=== PATIENT | female | born 1970 | race Caucasian/White ===

== ENCOUNTER → 2024-08-04 08:03 | Outpatient (REF) | payer OTHER, SELFPAY ==
[2024-08-04 08:30] LABS: % Basophils 0.4 % (0-2); % Eosinophils 1.3 % (0-6); % Immature Granulocytes 0.2 % (0-0.5); % Lymphocytes 27.9 % (20.5-51.1); % Monocytes 8.2 % (1.7-9.3); Absolute Eosinophils 0.1 10^3/uL (0-0.7); Absolute Lymphocytes 1.3 10^3/uL (1.2-3.4); Absolute Monocytes 0.4 10^3/uL (0.1-0.6); Absolute Neutrophils 2.8 10^3/uL (1.4-6.5); Hematocrit 38.5 % (37.0-47.0); Hemoglobin 13.1 g/dL (12.0-16.0); Mean Corpuscular Hgb 32.4 pg (27.0-31.0); Mean Corpuscular Volume 95.3 fL (81.0-99.0); Mean Platelet Volume 9.4 fL (7.4-10.4); Nucleated Red Blood Cells % 0 %; Platelet Count 217 10^3/uL (130-400); Red Blood Cell Count 4.04 10^6/uL (4.20-5.40); Red Cell Dist. Width 13.8 % (11.5-14.5); White Blood Cell Count 4.5 10^3/uL (4.8-10.8)
[2024-08-04 08:58] LABS: ALT (SGPT) 21 U/L (0-35); AST (SGOT) 33 U/L (14-36); Albumin 4.8 g/dl (3.5-5.0); Alkaline Phosphatase 68 U/L (38-126); Blood Urea Nitrogen 15 mg/dl (7-17); Calcium 9.9 mg/dl (8.4-10.2); Carbon Dioxide 29 mmol/L (22-30); Chloride 104 mmol/L (98-107); Glucose 94 mg/dl (70-99); Potassium 4.7 mmol/L (3.5-5.1); Sodium 139 mmol/L (135-145); Total Bilirubin 0.5 mg/dl (0.2-1.3); Total Cholesterol 249 mg/dl (50-199); Total Protein 7.4 g/dl (6.3-8.2); Triglyceride 71 mg/dl (10-149); Very Low Density Lipoprotein 14 mg/dl (0-30); eGFR > 60.00
[2024-08-04 09:08] LABS: HDL Cholesterol 127 mg/dl; LDL Cholesterol, Calculated 108 mg/dl
== END ==
LOC: REG 08:03
PROVIDERS: ATTENDING PHYSICIAN Family Medicine; FAMILY PHYSICIAN Family Medicine
DX: R53.82 Chronic fatigue, unspecified (principal); R63.5 Abnormal weight gain; Z00.00 Encounter for general adult medical examination without abnormal findings; G47.9 Sleep disorder, unspecified; N28.9 Disorder of kidney and ureter, unspecified; F41.9 Anxiety disorder, unspecified; E78.00 Pure hypercholesterolemia, unspecified
CPT/HCPCS: 36415; 80053; 80061; 85025

== ENCOUNTER → 2024-08-25 10:00 | Outpatient (REF) | payer OTHER, SELFPAY | LOC: RCS 10:00 | PROVIDERS: ATTENDING PHYSICIAN Family Medicine; FAMILY PHYSICIAN Family Medicine | DX: R07.89 Other chest pain (principal) | CPT/HCPCS: 93005 ==

== ENCOUNTER → 2024-10-30 16:07 | Outpatient (REF) | payer OTHER, SELFPAY | LOC: WDC 16:07 | PROVIDERS: ATTENDING PHYSICIAN Family Medicine; FAMILY PHYSICIAN Family Medicine | DX: Z12.31 Encounter for screening mammogram for malignant neoplasm of breast (principal) | CPT/HCPCS: 77063; 77067 ==

== ENCOUNTER 2024-12-31 08:33 | Emergency (ER) | payer SELFPAY ==
[2024-12-31 08:36] VITALS: BP 133/69
[2024-12-31 09:09] LABS: Urine Albumin 1+ (Neg - Trace); Urine Bilirubin Negative (Negative); Urine Character Clear (Clear); Urine Color Yellow; Urine Glucose Negative (Negative); Urine Ketone Negative (Negative); Urine Leukocyte 1+ (Negative); Urine Nitrite Negative (Negative); Urine Occult Blood 1+ (Negative); Urine Specific Gravity 1.025 (<1.030); Urine Urobilinogen Negative (Neg - 1+)
[2024-12-31 09:35] LABS: Urine Bacteria Moderate (Negative); Urine White Cell 50-60 /HPF (0-5)
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
[2024-12-31 09:55] VITALS: BP 136/83
[2024-12-31 09:57] VITALS: BMI 18.8
[2024-12-31 10:00] VITALS: BP 133/84
[2024-12-31 10:03] LABS: % Basophils 0.3 % (0-2); % Eosinophils 0.7 % (0-6); % Immature Granulocytes 0.4 % (0-0.5); % Lymphocytes 16.4 % (20.5-51.1); % Monocytes 8.4 % (1.7-9.3); % Neutrophils 73.8 % (42.2-75.2); Absolute Eosinophils 0.1 10^3/uL (0-0.7); Absolute Lymphocytes 1.3 10^3/uL (1.2-3.4); Absolute Monocytes 0.6 10^3/uL (0.1-0.6); Absolute Neutrophils 5.7 10^3/uL (1.4-6.5); Hematocrit 36.9 % (37.0-47.0); Hemoglobin 12.7 g/dL (12.0-16.0); Mean Corp Hgb Conc. 34.4 g/dL (33.0-37.0); Mean Corpuscular Hgb 32.8 pg (27.0-31.0); Mean Corpuscular Volume 95.3 fL (81.0-99.0); Mean Platelet Volume 9.7 fL (7.4-10.4); Nucleated Red Blood Cells % 0 %; Platelet Count 173 10^3/uL (130-400); Red Blood Cell Count 3.87 10^6/uL (4.20-5.40); White Blood Cell Count 7.7 10^3/uL (4.8-10.8)
[2024-12-31 10:20] LABS: ALT (SGPT) 22 U/L (0-35); AST (SGOT) 50 U/L (14-36); Albumin 4.4 g/dl (3.5-5.0); Alkaline Phosphatase 56 U/L (38-126); Blood Urea Nitrogen 13 mg/dl (7-17); Calcium 9.7 mg/dl (8.4-10.2); Carbon Dioxide 30 mmol/L (22-30); Chloride 106 mmol/L (98-107); Estimated Creatinine Clearance 78 ml/min; Glucose 90 mg/dl (70-99); Potassium 4.6 mmol/L (3.5-5.1); Sodium 141 mmol/L (135-145); Total Bilirubin 0.7 mg/dl (0.2-1.3); Total Protein 6.9 g/dl (6.3-8.2); eGFR > 60.00
[2024-12-31 11:00] VITALS: BP 127/80
[2024-12-31 11:40] VITALS: BP 136/100
[2024-12-31 12:00] VITALS: BP 130/77
== END 2024-12-31 12:51 | disposition home or self-care (01) ==
LOC: EMR 08:33
PROVIDERS: EMERGENCY PHYSICIAN Emergency Medicine; FAMILY PHYSICIAN Family Medicine
DX: S40.212A Abrasion of left shoulder, initial encounter (principal); S80.12XA Contusion of left lower leg, initial encounter; S20.211A Contusion of right front wall of thorax, initial encounter; V89.2XXA Person injured in unspecified motor-vehicle accident, traffic, initial encounter; Y92.410 Unspecified street and highway as the place of occurrence of the external cause
CPT/HCPCS: 99284; 70450; 71260; 74177; 80053; 81003; 81015; 85025; 87086; Q9967

== ENCOUNTER 2025-08-06 01:40 | Emergency (ER) | payer OTHER, SELFPAY ==
[2025-08-06 01:57] VITALS: BP 103/47
[2025-08-06 02:00] VITALS: BP 90/57
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
[2025-08-06 03:00] VITALS: BP 92/52
[2025-08-06 06:00] VITALS: BP 94/58
[2025-08-06 07:00] VITALS: BP 95/57
--- NOTE | 2025-08-06 08:16 | EDRN ---
Reviewed discharge instructions with patient. Verbalized understanding. Ambulated with steady gait to the lobby.
[2025-08-06 08:17] VITALS: BP 95/57
== END 2025-08-06 08:18 | disposition home or self-care (01) ==
LOC: EMR 01:40
PROVIDERS: EMERGENCY PHYSICIAN Emergency Medicine
DX: F10.129 Alcohol abuse with intoxication, unspecified (principal)
CPT/HCPCS: 99282